=== PATIENT | male | born 1960 | race Caucasian/White ===

== ENCOUNTER 2019-07-14 22:51 | Emergency (ER) | payer OTHER ==
[~2019-07-14] VITALS: Ht 182.9 cm; Wt 102.1 kg
[2019-07-14] MEDS ORDERED: CARVEDILOL25 MG PO (23:02)
[2019-07-14] MEDS ORDERED: LYRICA 75 MG CA75 MG PO (23:02)
[2019-07-14] MEDS ORDERED: LISINOPRIL2.5 MG PO (23:03)
[2019-07-14 23:25] LABS: ABSOLUTE NEUTROPHILS 5.1 thou/uL (1.4-8.2); BASOPHILS 0.8 % (0.0-2.0); HEMATOCRIT 49.3 % (42.0-52.0); HEMOGLOBIN 16.7 gm/dL (14.0-18.0); LYMPHOCYTES 20.4 % (24.0-44.0); MCH 31.1 pg (26.0-34.0); MCHC 33.9 g/dL (28.0-37.0); MONOCYTES 10.1 % (1.0-8.0); PLATELET COUNT 253 thou/uL (150-400); POLYS 63.7 % (36.0-66.0); RBC 5.36 mil/uL (4.50-6.00); RDW 14.7 % (10.5-14.5)
[2019-07-14 23:34] LABS: CALCIUM 9.3 mg/dL (8.5-10.1)
[2019-07-14 23:40] LABS: ALBUMIN 3.8 g/dL (3.4-5.0); TOTAL BILIRUBIN 0.5 mg/dL (<0.1-1.0); TOTAL PROTEIN 6.9 g/dL (6.4-8.2)
[2019-07-15 01:29] LABS: URINE BILIRUBIN NEGATIVE (Negative); URINE BLOOD NEGATIVE (Negative); URINE CLARITY CLEAR; URINE COLOR YELLOW; URINE GLUCOSE-RANDOM* NEGATIVE (Negative); URINE KETONES NEGATIVE (Negative); URINE LEUKOCYTES-REFLEX NEGATIVE (Negative); URINE NITRITE-REFLEX NEGATIVE (Negative); URINE PROTEIN (DIPSTICK) NEGATIVE (Negative); URINE UROBILINOGEN 0.2 E.U./dl (0.2-1.0)
[2019-07-15] MEDS ORDERED: SKELAXIN 800 M800 M1 PO (01:44)
[2019-07-15 02:02] VITALS: BP 142/88
== END 2019-07-15 01:55 | disposition home or self-care (01) ==
LOC: ER 22:51
PROVIDERS: Emergency Medicine
DX: I12.9 Hypertensive chronic kidney disease with stage 1 through stage 4 chronic kidney disease, or unspecified chronic kidney disease (principal); N18.9 Chronic kidney disease, unspecified; K86.89 Other specified diseases of pancreas; I10 Essential (primary) hypertension; Z98.890 Other specified postprocedural states; Z87.442 Personal history of urinary calculi; Z79.899 Other long term (current) drug therapy